=== PATIENT | female | born 1930 | race Caucasian/White ===

== ENCOUNTER 2017-01-14 12:36 | Emergency (ER) | payer MEDICARE, OTHER ==
[~2017-01-14] VITALS: Ht 157.5 cm; Wt 74.8 kg
[2017-01-14 12:44] VITALS: BP 117/45
--- NOTE | 2017-01-14 13:27 | NUR ---
RADIOLOGY AT BEDSIDE FOR RT KNEE XRAY.
== END 2017-01-14 14:19 | disposition home or self-care (01) ==
LOC: ER 12:38
DX: M25.561 Pain in right knee (principal); E11.9 Type 2 diabetes mellitus without complications; I10 Essential (primary) hypertension
CPT/HCPCS: 73562; A4606; Z7610